=== PATIENT | female | born 2000 | race Caucasian/White ===

== ENCOUNTER 2020-08-06 21:03 | Emergency (ER) | payer OTHER ==
[2020-08-06] MEDS ORDERED: Ibuprofen 800 MG TAB ONE (21:45)
== END 2020-08-06 21:52 | disposition home or self-care (01) ==
LOC: BURERS 21:03
DX: S40.012A Contusion of left shoulder, initial encounter (principal); F17.210 Nicotine dependence, cigarettes, uncomplicated; W18.30XA Fall on same level, unspecified, initial encounter

== ENCOUNTER 2020-09-15 02:06 | Emergency (ER) | payer OTHER | END 2020-09-15 02:32 | disposition home or self-care (01) | LOC: BURERS 02:06 | DX: R07.89 Other chest pain (principal); R42 Dizziness and giddiness; F17.210 Nicotine dependence, cigarettes, uncomplicated | CPT/HCPCS: 99284 ==

== ENCOUNTER 2020-12-22 15:23 | Emergency (ER) | payer OTHER | END 2020-12-22 16:00 | disposition home or self-care (01) | LOC: BURERS 15:23 | DX: M25.561 Pain in right knee (principal); F17.210 Nicotine dependence, cigarettes, uncomplicated; Z79.899 Other long term (current) drug therapy | CPT/HCPCS: 99281 ==

== ENCOUNTER 2021-01-20 19:36 | Emergency (ER) | payer OTHER ==
[2021-01-20] MEDS ORDERED: Dexamethasone 4 MG TAB ONE (21:18)
[2021-01-21 08:02] LABS: SARS-CoV-2 PCR by NAA Not Detected (NotDetected)
== END 2021-01-20 21:28 | disposition home or self-care (01) ==
LOC: BURERS 19:36
DX: B34.9 Viral infection, unspecified (principal); Z20.822 Contact with and (suspected) exposure to COVID-19; F17.210 Nicotine dependence, cigarettes, uncomplicated
CPT/HCPCS: 71045; 87804; J8540; U0003; U0005

== ENCOUNTER 2022-06-15 17:07 | Emergency (ER) | payer OTHER | END 2022-06-15 18:31 | disposition home or self-care (01) | LOC: BURERS 17:07 | DX: S93.402A Sprain of unspecified ligament of left ankle, initial encounter (principal); S83.92XA Sprain of unspecified site of left knee, initial encounter; F17.220 Nicotine dependence, chewing tobacco, uncomplicated; W01.0XXA Fall on same level from slipping, tripping and stumbling without subsequent striking against object, initial encounter ==